=== PATIENT | male | born 1980 ===

== ENCOUNTER 2017-01-02 11:44 | Emergency (ER) | payer MEDICAID ==
[2017-01-02 12:03] VITALS: RESP 18
[2017-01-02] MEDS ORDERED: Lactated Ringer's 1,000 ML IV STA (12:42)
[2017-01-02 12:49] LABS: RBC URINE 84 /hpf (0-3); URINE BILIRUBIN NEGATIVE (NEGATIVE); URINE BLOOD 2+ (NEGATIVE); URINE COLOR Yellow (YELLOW); URINE GLUCOSE (UA) NORMAL (Normal); URINE KETONE NEGATIVE (NEGATIVE); URINE LEUKOCYTE ESTERASE NEG Leu/uL (Negative); URINE PROTEIN 1+ mg/dL (NEGATIVE); URINE UROBILINOGEN NORMAL mg/dL (0.2-1.0); WBC URINE 1 /hpf (0-5)
[2017-01-02] MEDS ORDERED: Lactated Ringer's 1,000 ML ONE (12:58)
--- NOTE | 2017-01-02 13:06 | C.PDOC ---
History Of Present Illness 36 year old male presents to the ED for evaluation of right-sided abdominal pain which began around 3 days ago. Patient describes his pain as sharp and intermittent. He rates the pain as 8/10 in severity. Patient also states the pain radiates to the right side of his back and is associated with nausea and two episodes of vomiting. Patient took Ibuprofen without relief. He denies fever , chills, rash, history of kidney stones, gallstones or previous occurrence of similar symptoms. Time Seen by Provider: 01/02/17 12:21 Chief Complaint (Nursing): Back Pain History Per: Patient History/Exam Limitations: no limitations Onset/Duration Of Symptoms: Days (3), Other (constant ) Current Symptoms Are (Timing): Still Present Quality Of Discomfort: Sharp, "Pain" Previous Symptoms: Back Pain Associated Symptoms: denies: Incontinence, New Weakness, New Numbness Additional History Per: Patient Past Medical History Reviewed: Historical Data, Nursing Documentation, Vital Signs Vital Signs: Last Vital Signs Temp 98.6 F 01/02/17 15:23 Pulse 61 01/02/17 15:23 Resp 18 01/02/17 15:23 BP 145/93 H 01/02/17 15:23 Pulse Ox 98 01/02/17 15:23 - Medical History PMH: No Chronic Diseases Surgical History: No Surg Hx Family History: States: Diabetes - Social History Hx Tobacco Use: No Hx Alcohol Use: Yes (occasional) Hx Substance Use: No - Immunization History Hx Tetanus Toxoid Vaccination: No Hx Influenza Vaccination: No Hx Pneumococcal Vaccination: No Review Of Systems Constitutional: Negative for: Fever, Chills Gastrointestinal: Positive for: Nausea, Vomiting, Abdominal Pain (right ) Musculoskeletal: Positive for: Back Pain (right) Skin: Negative for: Rash Physical Exam - Physical Exam Appears: Non-toxic, No Acute Distress Skin: Normal Color, Warm, Dry, No Rash Head: Atraumatic, Normacephalic Eye(s): bilateral: Normal Inspection Oral Mucosa: Moist Neck: Supple Chest: Symmetrical, No Deformity, No Tenderness Cardiovascular: Rhythm Regular, No Murmur Respiratory: Normal Breath Sounds, No Rales, No Rhonchi, No Wheezing Gastrointestinal/Abdominal: Bowel Sounds, Soft, Tenderness (right upper quadrant mildly tender), No Mass, No Distention, No Guarding, No Rebound Extremity: Normal ROM, No Deformity, No Swelling Neurological/Psych: Oriented x3, Normal Speech Gait: Steady ED Course And Treatment - Laboratory Results Result Diagrams: 01/02/17 13:15 Lab Interpretation: No Acute Changes O2 Sat by Pulse Oximetry: 100 (on RA) Pulse Ox Interpretation: Normal - CT Scan/US CT A/P Other Rad Studies (CT/US): Interpreted By Me, Read By Radiologist, Radiology Report Reviewed CT/US Interpretation: PROCEDURE: CT Abdomen and Pelvis without Oral or IV contrast. HISTORY: right flank pain, possible stone. COMPARISON: None available. TECHNIQUE: Contiguous axial images of the abdomen and pelvis. No oral or IV contrast administered. Coronal and Sagittal reformats generated and reviewed. Radiation dose: Total exam DLP = 579.84 MGy-cm. This CT exam was performed using one or more of the following dose reduction techniques: Automated exposure control, adjustment of the mA and/or kV according to patient size, and/or use of iterative reconstruction technique. FINDINGS: There is limited evaluation of the solid organs without the administration of IV contrast. LOWER THORAX: No visible consolidation, pleural effusion, or pneumothorax. LIVER: Unremarkable unenhanced appearance. GALLBLADDER AND BILE DUCTS: Unremarkable unenhanced appearance. PANCREAS: Unremarkable unenhanced appearance. SPLEEN: Unremarkable unenhanced appearance. ADRENALS: Unremarkable unenhanced appearance. KIDNEYS AND URETERS: 6 mm obstructing distal right ureteral calculus (series 3, image 131) with small calculus slightly more proximally within the ureter measuring approximately 3 mm (image 128). Proximal moderate hydroureter and hydronephrosis. Punctate nonobstructing left renal calculi. No left-sided hydronephrosis or hydroureter identified. BLADDER: Thick-walled under distended urinary bladder. REPRODUCTIVE: Unremarkable. APPENDIX: The appendix appears within normal limits of caliber. No secondary signs of acute appendicitis. BOWEL: The stomach is nondistended. Lack of oral contrast limits evaluation for bowel pathology. The bowel loops appear within normal limits of caliber without evidence of intestinal obstruction. Diverticulosis without CT evidence of acute diverticulitis. PERITONEUM: No significant free fluid. No definite free air. LYMPH NODES: No bulky lymphadenopathy identified. VASCULATURE: No aortic aneurysm. BONES: 16 mm sclerotic focus within the left ilium, possibly bone island. OTHER FINDINGS: Small fat containing bilateral inguinal hernias. IMPRESSION: 6 mm obstructing distal right ureteral calculus with small calculus slightly more proximally within the ureter measuring approximately 3 mm. Proximal moderate hydroureter and hydronephrosis. Punctate nonobstructing left renal calculi. No left-sided hydronephrosis or hydroureter identified. Thick-walled urinary bladder likely related to under distension. Correlate clinically. Indeterminate 16 mm sclerotic focus within the left ilium, possibly bone island. Small fat containing bilateral inguinal hernias. Additional incidental findings as above. Medical Decision Making Medical Decision Making: Labs reviewed. CT shows kidney stone [address] Howell regarding CT findings. He recommends flomax and antiboitic. Patient can follow up outpatient . Patient reevaluated and reports feeling better, pain has much improved. He is tolerating PO. I explained all results and instructed him to follow up with urologist. Patient verbalized understanding. Disposition Counseled Patient/Family Regarding: Diagnosis, Need For Followup, Rx Given - Disposition Referrals: Cody Howell Jr., MD [Staff Provider] - Disposition: HOME/ ROUTINE Disposition Time: 15:20 Condition: GOOD Additional Instructions: You have been treated for kidney stone on right side. Please take the following medications as indicated. It is important that you follow up with urologist Dr Howell in timely manner, call the office to make an appointment Flomax daily Ibuprofen every 6 hours for inflammation and mild pain Percocet for severe pain as needed every 8 hours Cipro twice daily Prescriptions: Ciprofloxacin [Cipro] 1 tab PO BID #14 tab Ibuprofen [Motrin] 600 mg PO Q8 #30 tab oxyCODONE/Acetaminophen [Percocet 5/325 mg Tab] 1 tab PO Q8 #14 tab Tamsulosin [Flomax] 0.4 mg PO DAILY #10 cap Instructions: Kidney Stones (DC) Forms: [employer] (Romanian), Work Excuse - POA Present On Arrival: None - Clinical Impression Clinical Impression: Kidney stone on right side - PA / [employer] / Resident Statement MD/DO has reviewed & agrees with the documentation as recorded. - Scribe Statement The provider has reviewed the documentation as recorded by the Scribe (Asia Mariee) All medical record entries made by the Scribe were at my direction and personally dictated by me. I have reviewed the chart and agree that the record accurately reflects my personal performance of the history, physical exam, medical decision making, and the department course for this patient. I have also personally directed, reviewed, and agree with the discharge instructions and disposition.
[2017-01-02 13:26] LABS: BASO % 0.3 % (0.0-2.0); EOS % 0.2 % (0.0-4.0); HEMATOCRIT 41.1 % (35.0-51.0); LYMPH # 1.7 K/uL (1.0-4.3); LYMPH % 15.7 % (20.0-40.0); MEAN CELL VOLUME 92.7 fL (80.0-94.0); MEAN CORPUSCULAR HEMOGLOBIN 31.7 pg (27.0-31.0); MEAN CORPUSCULAR HGB CONC 34.2 g/dL (33.0-37.0); MEAN PLATELET VOLUME 10.4 fL (7.2-11.7); MONO # 0.9 K/uL (0.0-0.8); MONO % 8.5 % (0.0-10.0); NRBC % 0.1 % (0.0-2.0); RED CELL DISTRIBUTION WIDTH 13.3 % (11.5-14.5)
[2017-01-02 13:27] LABS: WHITE BLOOD COUNT 10.6 K/uL (4.8-10.8)
--- NOTE | 2017-01-02 13:30 | CT ---
PROCEDURE: CT Abdomen and Pelvis without Oral or IV contrast. HISTORY: right flank pain, possible stone COMPARISON: None available. TECHNIQUE: Contiguous axial images of the abdomen and pelvis. No oral or IV contrast administered. Coronal and Sagittal reformats generated and reviewed. Radiation dose: Total exam DLP = 579.84 MGy-cm. This CT exam was performed using one or more of the following dose reduction techniques: Automated exposure control, adjustment of the mA and/or kV according to patient size, and/or use of iterative reconstruction technique. FINDINGS: There is limited evaluation of the solid organs without the administration of IV contrast. LOWER THORAX: No visible consolidation, pleural effusion, or pneumothorax. LIVER: Unremarkable unenhanced appearance. GALLBLADDER AND BILE DUCTS: Unremarkable unenhanced appearance. PANCREAS: Unremarkable unenhanced appearance. SPLEEN: Unremarkable unenhanced appearance. ADRENALS: Unremarkable unenhanced appearance. KIDNEYS AND URETERS: 6 mm obstructing distal right ureteral calculus (series 3, image 131) with small calculus slightly more proximally within the ureter measuring approximately 3 mm (image 128). Proximal moderate hydroureter and hydronephrosis. Punctate nonobstructing left renal calculi. No left-sided hydronephrosis or hydroureter identified. BLADDER: Thick-walled under distended urinary bladder. REPRODUCTIVE: Unremarkable. APPENDIX: The appendix appears within normal limits of caliber. No secondary signs of acute appendicitis. BOWEL: The stomach is nondistended. Lack of oral contrast limits evaluation for bowel pathology. The bowel loops appear within normal limits of caliber without evidence of intestinal obstruction. Diverticulosis without CT evidence of acute diverticulitis. PERITONEUM: No significant free fluid. No definite free air. LYMPH NODES: No bulky lymphadenopathy identified. VASCULATURE: No aortic aneurysm. BONES: 16 mm sclerotic focus within the left ilium, possibly bone island. OTHER FINDINGS: Small fat containing bilateral inguinal hernias. IMPRESSION: 6 mm obstructing distal right ureteral calculus with small calculus slightly more proximally within the ureter measuring approximately 3 mm. Proximal moderate hydroureter and hydronephrosis. Punctate nonobstructing left renal calculi. No left-sided hydronephrosis or hydroureter identified. Thick-walled urinary bladder likely related to under distension. Correlate clinically. Indeterminate 16 mm sclerotic focus within the left ilium, possibly bone island. Small fat containing bilateral inguinal hernias. Additional incidental findings as above.
[2017-01-02 15:25] VITALS: BP 145/93; PULSE 61; TEMP 98.6
[2017-01-04 19:58] VITALS: O2SAT 100
== END 2017-01-02 15:24 | disposition home or self-care (01) ==
LOC: C.ER 11:44
DX: N20.0 Calculus of kidney (principal)
CPT/HCPCS: 74176; 81001; 85025; 96374; 96375; 99284; J1885; J2405; J7120

== ENCOUNTER 2017-03-09 07:09 | Emergency (ER) | payer MEDICAID ==
[2017-03-09] MEDS ORDERED: Sodium Chloride 0.9% 1,000 ML IV ONE (08:05)
--- NOTE | 2017-03-09 08:14 | C.PDOC ---
History Of Present Illness 36 year old male, with history of right kidney stone, presents to ED for evaluation of right testicular pain, and penile pain that developed gradually since this morning. Denies back pain, abdominal pain, n/v/d, dysuria, hematuria , urinary frequency/retention, fever, or chills. Time Seen by Provider: 03/09/17 07:11 Chief Complaint (Nursing): Groin Pain History Per: Patient History/Exam Limitations: no limitations Onset/Duration Of Symptoms: Days Current Symptoms Are (Timing): Still Present Quality Of Discomfort: "Pain" Associated Symptoms: denies: Fever, Chills, Nausea, Vomiting, Diarrhea, Loss Of Appetite, Back Pain, Chest Pain, Constipation Alleviating Factors: None Recent travel outside of the [place]: No Additional History Per: Patient Past Medical History Reviewed: Historical Data, Nursing Documentation, Vital Signs Vital Signs: Last Vital Signs Temp 98.6 F 03/09/17 11:11 Pulse 69 03/09/17 11:11 Resp 20 03/09/17 11:11 BP 144/93 H 03/09/17 11:11 Pulse Ox 99 03/09/17 11:11 - Medical History PMH: Denies: Chronic Kidney Disease Family History: States: Diabetes - Social History Hx Tobacco Use: No Hx Alcohol Use: Yes (occasional) Hx Substance Use: Yes - Immunization History Hx Tetanus Toxoid Vaccination: No Hx Influenza Vaccination: No Hx Pneumococcal Vaccination: No Review Of Systems Except As Marked, All Systems Reviewed And Found Negative. Constitutional: Negative for: Fever, Chills Gastrointestinal: Negative for: Nausea, Vomiting, Abdominal Pain, Diarrhea, Constipation Genitourinary: Positive for: Scrotal Pain, Penile Pain. Negative for: Dysuria, Frequency, Incontinence, Hematuria, Penile Discharge Musculoskeletal: Negative for: Back Pain Physical Exam - Physical Exam Appears: Non-toxic, No Acute Distress Skin: Normal Color, Warm, Dry Head: Normacephalic Eye(s): bilateral: PERRL Nose: No Flaring Oral Mucosa: Moist, No Drooling Neck: Supple Cardiovascular: Rhythm Regular Respiratory: No Accessory Muscle Use, No Rales, No Rhonchi, No Wheezing Gastrointestinal/Abdominal: Soft, No Tenderness, No Distention, No Guarding, No Rebound Back: No CVA Tenderness Male Genital: No Testicular Tenderness (mild right side), No Testicular Swelling , No Inguinal Swelling, No Scrotal Swelling, Other (tenderness over base of penile shaft, Right sided) Extremity: Normal ROM, No Deformity Neurological/Psych: Oriented x3, Normal Speech ED Course And Treatment - Laboratory Results Result Diagrams: 03/09/17 08:28 03/09/17 08:28 Lab Interpretation: Normal O2 Sat by Pulse Oximetry: 98 (RA) Pulse Ox Interpretation: Normal - CT Scan/US TESTICULAR us Other Rad Studies (CT/US): Radiology Report Reviewed CT/US Interpretation: HISTORY: Right side testicular pain. TECHNIQUE: Realtime sonography through the scrotum with color and doppler flow. COMPARISON : None Available. FINDINGS: RIGHT TESTICLE: Measures 4.8 x 2.3 x 3.3 cm. Normal echotexture and flow. RIGHT EPIDIDYMIS: Normal size, morphology and vascularity. LEFT TESTICLE: Measures 4.7 x 2.2 x 2.9 cm. Normal echotexture and flow. LEFT EPIDIDYMIS: Normal size, morphology and vascularity. HYDROCELE : Minimal bilateral hydrocele. VARICOCELE: Mild left varicocele. OTHER FINDINGS: None. IMPRESSION: Minimal bilateral hydrocele. Mild left varicocele. Otherwise unremarkable examination. No evidence of testicular torsion. Progress Note: Blood work, UA, testicular ultrasound ordered and reviewed. Pt was given Toradol IVP. On re-eval, pt remained stable, afebrile, hemodynamicaly stable. Non-toxic. ENT: no acute findings. Neck: Supple, (-) meningeal sign. Lungs: CTA B/L, BS equal B/L. Abd: benign. Back: (-) CVA tenderness. Blood work review- appears without acute abnoramlities. US - normal study. Pt has clinical findings c/w Right sided penile shaft pain r/o kidney stone. ref. to f/u with Urology In 2 -3 days for re-eavl. return if any new changes. Disposition Counseled Patient/Family Regarding: Studies Performed, Diagnosis, Need For Followup, Rx Given - Disposition Referrals: Devika Dey MD [Staff Provider] - Disposition: HOME/ ROUTINE Disposition Time: 10:02 Condition: STABLE Additional Instructions: Strain urine during urination Take pain medication as need for pain Follow up with PMD in 2-3 days for re-evaluation. Return to ED if any worsening or new changes. Prescriptions: Tamsulosin [Flomax] 0.4 mg PO DAILY #10 cap traMADol [Ultram] 50 mg PO Q12 #7 tab Instructions: Kidney Stones (ED), Testicle Pain (ED) Forms: [facility] (Uzbek), Work Excuse - Clinical Impression Clinical Impression: Kidney stone on right side, Testicular pain - PA / ACCOUNT SUPPORT MANAGER / Resident Statement MD/DO has reviewed & agrees with the documentation as recorded. - Scribe Statement The provider has reviewed the documentation as recorded by the Scribe Sandie Mariee All medical record entries made by the Froyibe were at my direction and personally dictated by me. I have reviewed the chart and agree that the record accurately reflects my personal performance of the history, physical exam, medical decision making, and the department course for this patient. I have also personally directed, reviewed, and agree with the discharge instructions and disposition.
[2017-03-09] MEDS ORDERED: Sodium Chloride 0.9% 1,000 ML ONE (08:26)
[2017-03-09 08:41] LABS: BASO # 0.1 K/uL (0.0-0.2); BASO % 0.8 % (0.0-2.0); EOS % 0.6 % (0.0-4.0); HEMOGLOBIN 14.6 g/dL (12.0-18.0); LYMPH # 1.7 K/uL (1.0-4.3); LYMPH % 22.6 % (20.0-40.0); MEAN CELL VOLUME 91.3 fL (80.0-94.0); MEAN CORPUSCULAR HEMOGLOBIN 32.2 pg (27.0-31.0); MEAN CORPUSCULAR HGB CONC 35.3 g/dL (33.0-37.0); MEAN PLATELET VOLUME 9.9 fL (7.2-11.7); MONO # 0.6 K/uL (0.0-0.8); MONO % 7.9 % (0.0-10.0); NEUT # 5.1 K/uL (1.8-7.0); NEUT % 68.1 % (50.0-75.0); NRBC % 0.1 % (0.0-2.0); RBC 4.53 Mil/uL (4.40-5.90); RED CELL DISTRIBUTION WIDTH 13.8 % (11.5-14.5); WHITE BLOOD COUNT 7.5 K/uL (4.8-10.8)
[2017-03-09 08:50] LABS: SQUAMOUS EPITHIAL < 1 /hpf (0-5); URINE BILIRUBIN NEGATIVE (NEGATIVE); URINE BLOOD 3+ (NEGATIVE); URINE CLARITY Clear (Clear); URINE COLOR Yellow (YELLOW); URINE GLUCOSE (UA) NORMAL (Normal); URINE LEUKOCYTE ESTERASE NEG Leu/uL (Negative); URINE NITRATE NEGATIVE (NEGATIVE); URINE PROTEIN NEGATIVE (NEGATIVE); URINE UROBILINOGEN NORMAL mg/dL (0.2-1.0)
[2017-03-09 08:52] LABS: BLOOD UREA NITROGEN 12 mg/dL (9-20); CALCIUM 9.1 mg/dl (8.6-10.4); GFR AFRICAN-AMERICAN > 60; GFR NON-AFRICAN AMERICAN > 60
--- NOTE | 2017-03-09 09:47 | US ---
HISTORY: Right side testicular pain TECHNIQUE: Realtime sonography through the scrotum with color and doppler flow. COMPARISON: None Available. FINDINGS: RIGHT TESTICLE: Measures 4.8 x 2.3 x 3.3 cm. Normal echotexture and flow. RIGHT EPIDIDYMIS: Normal size, morphology and vascularity LEFT TESTICLE: Measures 4.7 x 2.2 x 2.9 cm. Normal echotexture and flow. LEFT EPIDIDYMIS: Normal size, morphology and vascularity. HYDROCELE: Minimal bilateral hydrocele VARICOCELE: Mild left varicocele OTHER FINDINGS: None. IMPRESSION: Minimal bilateral hydrocele. Mild left varicocele. Otherwise unremarkable examination. No evidence of testicular torsion.
[2017-03-09 11:13] VITALS: BP 144/93; PULSE 69; RESP 20; TEMP 98.6
[2017-03-09 18:15] VITALS: O2SAT 98
== END 2017-03-09 11:11 | disposition home or self-care (01) ==
LOC: C.ER 07:09
DX: N20.0 Calculus of kidney (principal); N50.811 Right testicular pain; Z87.442 Personal history of urinary calculi
CPT/HCPCS: 76870; 80048; 81001; 85025; 87086; 96361; 96374; 99284; J1885; J7040

== ENCOUNTER 2017-03-18 00:51 | Emergency (ER) | payer MEDICAID ==
[2017-03-18] MEDS ORDERED: Sodium Chloride 0.9% 1,000 ML ONE (01:04)
[2017-03-18] MEDS ORDERED: Sodium Chloride 0.9% 1,000 ML IV ONE (01:25)
[2017-03-18] MEDS ORDERED: HYDROmorphone 1 mg/ml ISec IVP STA (01:25)
--- NOTE | 2017-03-18 01:27 | C.PDOC ---
History Of Present Illness 36 y/o male with hx of kidney stones presents to ED with complaints of back pain radiating to flanks that began yesterday. Associated symptoms are darker urine and vomiting. Pt states he only took Tramadol 3 hours ago. Denies fever, diarrhea, or other physical complaints. Time Seen by Provider: 03/18/17 01:01 Chief Complaint (Nursing): Back Pain History Per: Patient History/Exam Limitations: no limitations Onset/Duration Of Symptoms: Hrs Current Symptoms Are (Timing): Still Present Previous Symptoms: Back Pain Associated Symptoms: None Exacerbating Factor(s): Nothing Recent travel outside of the [place]: No Past Medical History Reviewed: Historical Data, Nursing Documentation, Vital Signs Vital Signs: Last Vital Signs Temp 97.6 F 03/18/17 03:38 Pulse 68 03/18/17 03:38 Resp 18 03/18/17 03:38 BP 120/76 03/18/17 03:38 Pulse Ox 95 03/18/17 03:38 - Medical History PMH: Kidney Stones Surgical History: No Surg Hx Family History: States: Diabetes - Social History Hx Tobacco Use: No Hx Alcohol Use: Yes (occasional) Hx Substance Use: Yes - Immunization History Hx Tetanus Toxoid Vaccination: No Hx Influenza Vaccination: No Hx Pneumococcal Vaccination: No Review Of Systems Constitutional: Negative for: Fever, Chills Cardiovascular: Negative for: Chest Pain, Palpitations Respiratory: Negative for: Shortness of Breath Gastrointestinal: Positive for: Vomiting. Negative for: Abdominal Pain, Diarrhea Musculoskeletal: Positive for: Back Pain (radiates to flanks ) Neurological: Negative for: Weakness, Numbness Physical Exam - Physical Exam Appears: Well, Non-toxic Skin: Normal Color, Warm, Dry Head: Atraumatic, Normacephalic Eye(s): bilateral: Normal Inspection, PERRL Oral Mucosa: Moist Neck: Supple Chest: Symmetrical, No Tenderness Cardiovascular: Rhythm Regular Respiratory: Normal Breath Sounds, No Rales, No Rhonchi, No Wheezing Gastrointestinal/Abdominal: Soft, No Tenderness, No Distention Back: CVA Tenderness (Right sided; radiates to right flank ) Neurological/Psych: Oriented x3, Normal Speech, Normal Cognition ED Course And Treatment - Laboratory Results Result Diagrams: 03/18/17 01:33 03/18/17 01:33 O2 Sat by Pulse Oximetry: 97 (RA) Pulse Ox Interpretation: Normal - CT Scan/US CT abdomen & pelvis Other Rad Studies (CT/US): Read By Radiologist, Radiology Report Reviewed CT/US Interpretation: EXAM: CT Abdomen and Pelvis Without Intravenous Contrast. CLINICAL HISTORY: 36 years old, male; Pain; Abdominal pain; Flank; Right; Additional info: Abd pain. TECHNIQUE: Axial computed tomography images of the abdomen and pelvis without intravenous contrast. All CT. scans at this facility use one or more dose reduction techniques, viz.: automated exposure control;. ma/kV adjustment per patient size (including targeted exams where dose is matched to indication; i.e. head); or iterative reconstruction technique. Coronal and sagittal reformatted images were created and reviewed. COMPARISON: CT - ABD PELVIS W/O PO OR IV CONT 2017-01-02 13:05. FINDINGS: Lower thorax: Minimal atelectasis/scarring. ABDOMEN: Liver: Unremarkable. Gallbladder and bile ducts: No calcified stones. No ductal dilation. Pancreas: Unremarkable. No ductal dilation. Spleen: No splenomegaly. Adrenals: No mass. Kidneys and ureters: Mild stranding about RIGHT kidney. Few small calculi within LEFT kidney. Moderate pelvocaliectasis of RIGHT kidney. Moderately dilated RIGHT ureter. Two calculi within. RIGHT distal ureter, larger measuring 0.5 x 0[address] [facility]. [facility] Radiology [facility]. Final Radiology Report [id number]. Name: EMMA SAMS Age: 36Years M Date: 03/18. SSN: [id number] : 1980. Study: CT ABDOMEN/ PELVIS WO Requesting Physician: Arielle Hills. Images: 705. Addl Studies: Provided Clinical History: abd pain. CONFIDENTIALITY STATEMENT. This transmission is confidential and is intended to be a privileged communication. It is intended only for the use of the addressee. Access to this. message by anyone else is unauthorized. If you are not the intended recipient, any disclosure, copying, distribution or any action taken, or omitted to. be taken in reliance on it is prohibited and may be unlawful. If you received this communication in error, please notify us by telephone, so that return. of this document to us can be arranged. Page 2 of 2. Stomach and bowel: Segmental areas of probable underdistention of colon. No definite mural. thickening. No obstruction. Appendix: Normal caliber. No inflammation. PELVIS: Bladder: Unremarkable. No stones. Reproductive: Unremarkable as visualized. ABDOMEN and PELVIS: Intraperitoneal space: No significant fluid collection. No free air. Bones/joints: Probable bone island. No acute fracture. Soft tissues: Small RIGHT inguinal hernia containing fat. Tiny LEFT inguinal hernia containing fat. Vasculature: Mild atherosclerotic disease. No aneurysm. Lymph nodes: No pathologically enlarged lymph nodes. IMPRESSION: 1. RIGHT distal ureteral calculi with moderate hydroureteronephrosis. 2. Incidental/non-acute findings are described above. Thank you for allowing us to participate in the care of your patient. Dictated and Authenticated by: Dewayne Wilkins MD. 03/18/2017 2:25 AM Eastern Time ([place] & [place]) Medical Decision Making Medical Decision Making: Administered IV fluids. Ordered CT abdomen and pelvis, blood work, and urinalysis. Re-evaluation: Pt states he feels better and stable for discharge. Disposition - Disposition Referrals: Burke Cortez MD [Staff Provider] - Disposition: HOME/ ROUTINE Disposition Time: 03:00 Condition: GOOD Prescriptions: Ciprofloxacin HCl [Cipro] 500 mg PO BID #10 tablet oxyCODONE/Acetaminophen [Percocet 5/325 mg Tab] 1 ea PO TID PRN #15 tab PRN Reason: Pain, Mild (1-3) Tamsulosin HCl [Flomax] 0.4 mg PO DAILY 5 Days #5 cap.er.24h Instructions: Renal Colic (ED) Forms: General Discharge Instructions, [facility] (Guyanese) Print Language: SOUTH AFRICAN - Clinical Impression Clinical Impression: Kidney stone on right side - Scribe Statement The provider has reviewed the documentation as recorded by the Froyibe Isis Castro All medical record entries made by the Scribe were at my direction and personally dictated by me. I have reviewed the chart and agree that the record accurately reflects my personal performance of the history, physical exam, medical decision making, and the department course for this patient. I have also personally directed, reviewed, and agree with the discharge instructions and disposition.
[2017-03-18 01:38] LABS: BASO % 0.4 % (0.0-2.0); EOS % 0.2 % (0.0-4.0); HEMOGLOBIN 13.8 g/dL (12.0-18.0); LYMPH # 1.9 K/uL (1.0-4.3); LYMPH % 14.1 % (20.0-40.0); MEAN CELL VOLUME 91.6 fL (80.0-94.0); MEAN CORPUSCULAR HEMOGLOBIN 31.2 pg (27.0-31.0); MEAN CORPUSCULAR HGB CONC 34.1 g/dL (33.0-37.0); MEAN PLATELET VOLUME 9.9 fL (7.2-11.7); MONO # 0.9 K/uL (0.0-0.8); MONO % 6.9 % (0.0-10.0); NEUT # 10.6 K/uL (1.8-7.0); NEUT % 78.4 % (50.0-75.0); RBC 4.43 Mil/uL (4.40-5.90); RED CELL DISTRIBUTION WIDTH 13.6 % (11.5-14.5); WHITE BLOOD COUNT 13.5 K/uL (4.8-10.8)
[2017-03-18 01:42] LABS: SQUAMOUS EPITHIAL < 1 /hpf (0-5); URINE BILIRUBIN NEGATIVE (NEGATIVE); URINE BLOOD 2+ (NEGATIVE); URINE CLARITY Turbid (Clear); URINE COLOR Yellow (YELLOW); URINE GLUCOSE (UA) NORMAL (Normal); URINE LEUKOCYTE ESTERASE NEG Leu/uL (Negative); URINE NITRATE NEGATIVE (NEGATIVE); URINE PROTEIN 1+ mg/dL (NEGATIVE); URINE UROBILINOGEN NORMAL mg/dL (0.2-1.0)
[2017-03-18 01:52] LABS: ALB/GLOB RATIO 1.3 (1.0-2.1); ALBUMIN 4.4 g/dL (3.5-5.0); CALCIUM 9.8 mg/dl (8.6-10.4)
[2017-03-18 01:53] LABS: BARBITURATES, UR NEGATIVE (NEGATIVE); BENZODIAZEPINES, UR NEGATIVE (NEGATIVE); OPIATES, UR NEGATIVE (NEGATIVE); PHENCYCLIDINE, UR NEGATIVE (NEGATIVE)
--- NOTE | 2017-03-18 02:26 | CT ---
EXAM: CT Abdomen and Pelvis Without Intravenous Contrast CLINICAL HISTORY: 36 years old, male; Pain; Abdominal pain; Flank; Right; Additional info: Abd pain TECHNIQUE: Axial computed tomography images of the abdomen and pelvis without intravenous contrast. All CT scans at this facility use one or more dose reduction techniques, viz.: automated exposure control; ma/kV adjustment per patient size (including targeted exams where dose is matched to indication; i.e. head); or iterative reconstruction technique. Coronal and sagittal reformatted images were created and reviewed. COMPARISON: CT - ABD PELVIS W/O PO OR IV CONT 2017-01-02 13:05 FINDINGS: Lower thorax: Minimal atelectasis/scarring. ABDOMEN: Liver: Unremarkable. Gallbladder and bile ducts: No calcified stones. No ductal dilation. Pancreas: Unremarkable. No ductal dilation. Spleen: No splenomegaly. Adrenals: No mass. Kidneys and ureters: Mild stranding about RIGHT kidney. Few small calculi within LEFT kidney. Moderate pelvocaliectasis of RIGHT kidney. Moderately dilated RIGHT ureter. Two calculi within RIGHT distal ureter, larger measuring 0.5 x 0.3 x 0.3 cm. Stomach and bowel: Segmental areas of probable underdistention of colon. No definite mural thickening. No obstruction. Appendix: Normal caliber. No inflammation. PELVIS: Bladder: Unremarkable. No stones. Reproductive: Unremarkable as visualized. ABDOMEN and PELVIS: Intraperitoneal space: No significant fluid collection. No free air. Bones/joints: Probable bone island. No acute fracture. Soft tissues: Small RIGHT inguinal hernia containing fat. Tiny LEFT inguinal hernia containing fat. Vasculature: Mild atherosclerotic disease. No aneurysm. Lymph nodes: No pathologically enlarged lymph nodes. IMPRESSION: 1. RIGHT distal ureteral calculi with moderate hydroureteronephrosis. 2. Incidental/non-acute findings are described above.
[2017-03-18 03:04] VITALS: PULSE 68; RESP 18
[2017-03-18] MEDS ORDERED: HYDROmorphone 0.5 mg/0.5 ml ISec IVP STA (03:21)
[2017-03-18 03:42] VITALS: BP 120/76; TEMP 97.6
[2017-03-18 05:41] VITALS: O2SAT 97
== END 2017-03-18 03:42 | disposition home or self-care (01) ==
LOC: C.ER 00:51
DX: N13.2 Hydronephrosis with renal and ureteral calculous obstruction (principal); Z87.442 Personal history of urinary calculi
CPT/HCPCS: 74176; 80053; 80324; 80345; 80346; 80349; 80353; 80358; 80361; 81001; 83690; 83992; 85025; 96361; 96374; 96375; 96376; 99285; J1170; J1885; J2405; J7040